=== PATIENT | female | born 1955 ===

== ENCOUNTER 2016-12-23 18:30 | Emergency (ER) | payer SELFPAY ==
[2016-12-23 18:42] VITALS: TEMP 98.8
--- NOTE | 2016-12-23 19:24 | ED PDOC ---
Arrival/HPI - General Chief Complaint: Lower Extremity Problem/Injury Time Seen by Provider: 12/23/16 19:03 Historian: Patient, Family - History of Present Illness Narrative History of Present Illness (Text): 12/23/16 19:20 61yr old female presents today with left knee pain. pt states she has been having on and off knee pain for a while. pt states she was told she had a cyst behind the left knee. pt states that she stood up today, felt a pop in the knee and has been unable to ambulate since. pt c/o 11/19 pain over the anterior aspect of the knee with the inability to flex the knee. no mediations taken for pain. incident occurred prior to arrival. denies numbness, weakness, tingling in the extremity. no other complaints. Time/Duration: Prior to Arrival Symptom Onset: Sudden Symptom Course: Unchanged Past Medical History - Provider Review Nursing Documentation Reviewed: Yes - Travel History Have you recently traveled outside [place] w/in the past 3 mons?: No - Cardiac Hx Hypertension: Yes - Psychiatric Hx Substance Use: No - Surgical History Hx Cholecystectomy: Yes Other/Comment: L knee drained 2 years ago - Anesthesia Hx Anesthesia: Yes Hx Anesthesia Reactions: No Hx Malignant Hyperthermia: No Family/Social History - Physician Review Nursing Documentation Reviewed: Yes Family/Social History: Unknown Family HX Smoking Status: Never Smoked Hx Alcohol Use: No Hx Substance Use: No Allergies/Home Meds Allergies/Adverse Reactions: Allergies No Known Allergies Allergy (Verified 12/23/16 18:59) Home Medications: Home Meds Medication Instructions Recorded Confirmed Candesartan/Hydrochlorothiazid 1 tab PO DAILY 12/23/16 12/23/16 [Candesartan-Hctz 32-12.5 mg Tb] Review of Systems - Review of Systems Constitutional: absent: Fatigue, Fevers Respiratory: absent: SOB, Cough Cardiovascular: absent: Chest Pain, Palpitations Gastrointestinal: absent: Abdominal Pain, Nausea, Vomiting Genitourinary Female: absent: Dysuria, Frequency Musculoskeletal: Arthralgias Skin: absent: Rash, Pruritis Neurological: absent: Headache, Dizziness Psychiatric: absent: Anxiety, Depression Physical Exam Vital Signs Reviewed: Yes Vital Signs Temp Pulse Resp BP Pulse Ox 12/23/16 18:42 98.8 F 108 H 18 139/84 100 Temperature: Afebrile Blood Pressure: Normal Pulse: Tachycardic Respiratory Rate: Normal Appearance: Positive for: Well-Appearing, Non-Toxic, Comfortable Pain Distress: None Mental Status: Positive for: Alert and Oriented X 3 - Systems Exam Head: Present: Atraumatic Neck: Present: Normal Range of Motion Respiratory/Chest: Present: Clear to Auscultation, Good Air Exchange. No: Respiratory Distress, Accessory Muscle Use Cardiovascular: Present: Regular Rate and Rhythm, Normal S1, S2. No: Murmurs Abdomen: No: Tenderness Lower Extremity: Present: NORMAL PULSES, Tenderness (left knee; + ttp over anterior and posterior aspect of knee; leg held in extension; unable to flex. no calf tenderness. no erythema; no edema, no ecchymosis; no warmth. ), Neurovascularly Intact, Capillary Refill < 2 s. No: CALF TENDERNESS, Normal ROM , Swelling, Temperature Abnormalties Neurological: Present: GCS=15, Speech Normal, Normal Sensory Function Skin: Present: Warm, Dry, Normal Color. 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 no tenderness. knee immoblizer and cane given for ambulation all results discussed in depth with patient and her daughter. pt was advised to f/u with orthopedist. advised using immobilizer and cane for ambulation. stressed importance of immediate return if symptoms worsen,persist or if new symptoms develop. case discussed with attending of record. impression; knee pain motrin every 6 hours as needed for pain percocet; 1 tablet every 6 hours as needed for moderate to severe pain; may cause drowsiness Use knee immobilizer and cane for ambulation Rest, Ice, elevation follow up with the orthopedist within the next 2 days Follow up with the primary care physician within the next 2 days Return immediately if symptoms worsen,persist or if new symptom develop. - RAD Interpretation Radiology Orders: 12/23/16 19:10 KNEE WITH PATELLA LEFT 3 VIEW [RAD] Stat DUPLEX LOWER EXTRM VEIN LEFT [US] Stat - Medication Orders Current Medication Orders: Discontinued Medications Ketorolac Tromethamine (Toradol) 60 mg IM STAT STA Stop: 12/23/16 19:11 Last Admin: 12/23/16 19:43 Dose: 60 mg MAR Pain Assessment Document 12/23/16 19:43 OCS (Rec: 12/23/16 19:[address] [facility] [id number]) Pain Reassessment Is this a pain reassessment? Yes Sleep Is patient sleeping during reassessment? No Presence of Pain Presence of Pain Yes Pain Scale Used Pain Scale Used Numeric Location Left, Right or Bilateral Left Pain Location Body Site Knee Description Description Constant Intensity of Pain at present 8 IM Administration Charges Document 12/23/16 19:43 OCS (Rec: 12/23/16 19:[address] [facility] [id number]) Injection Site MAR Injection Site Left Deltoid Charges for Administration # of IM Administrations 1 Oxycodone/Acetaminophen (Percocet 5/325 Mg Tab) 1 tab PO STAT STA Stop: 12/23/16 19:35 Last Admin: 12/23/16 19:42 Dose: 1 tab MAR Pain Assessment Document 12/23/16 19:42 OCS (Rec: 12/23/16 19:[address] [facility] [id number]) Pain Reassessment Is this a pain reassessment? Yes Sleep Is patient sleeping during reassessment? No Presence of Pain Presence of Pain Yes Pain Scale Used Pain Scale Used Numeric Location Left, Right or Bilateral Left Pain Location Body Site Knee Description Description Constant Intensity of Pain at present 8 Alleviating Factors/Management Medication Techniques Disposition/Present on Arrival - Present on Arrival Any Indicators Present on Arrival: No History of DVT/PE: No History of Uncontrolled Diabetes: No Urinary Catheter: No History of Decub. Ulcer: No History Surgical Site Infection Following: None - Disposition Have Diagnosis and Disposition been Completed?: Yes Diagnosis: Knee pain Disposition: HOME/ ROUTINE Disposition Time: 20:34 Patient Plan: Discharge Condition: GOOD Discharge Instructions (ExitCare): Knee Pain (ED) Print Language: BAHRAINI Additional Instructions: motrin every 6 hours as needed for pain percocet; 1 tablet every 6 hours as needed for moderate to severe pain; may cause drowsiness Use knee immobilizer and cane for ambulation Rest, Ice, elevation follow up with the orthopedist within the next 2 days Follow up with the primary care physician within the next 2 days Return immediately if symptoms worsen,persist or if new symptom develop. Prescriptions: Ibuprofen [Motrin] 600 mg PO Q6H PRN #20 tab PRN Reason: pain/fever reduction oxyCODONE/Acetaminophen [Percocet 5/325 mg Tab] 1 tab PO Q6H PRN #6 tab PRN Reason: moderate to severe pain Referrals: PCP,NO [Primary Care Provider] - Follow up with primary Wilder Chavez MD [Staff Provider] - Follow up with primary Jethro Bruno MD [Staff Provider] - Follow up with primary [facility] [place]Outside] - Follow up with primary [facility] [place] [Outside] - Follow up with primary Forms: [employer] (Peruvian)
[2016-12-23] MEDS ORDERED: Oxycodone/Acetaminophen 5/325 mg Tab PO STA (19:34)
[2016-12-23 20:43] VITALS: BP 147/74; PULSE 82; RESP 16; O2SAT 98
--- NOTE | 2016-12-24 08:50 | US ---
PROCEDURE: Left lower extremity venous US HISTORY: Leg pain and swelling. Evaluate for DVT. PHYSICIAN(S): Jose Leon MD. TECHNIQUE: Duplex sonography and color-flow Doppler with graded compression were used to evaluate the deep venous system of the left lower extremity. FINDINGS: The visualized deep venous system of the left lower extremity is sonographically normal and compressible. Normal wave forms and augmentation are seen. There is no sonographic evidence for deep venous thrombosis in the visualized segments of the left lower extremity. IMPRESSION: 1. No sonographic evidence for deep venous thrombosis in the visualized segments of the left lower extremity.
--- NOTE | 2016-12-24 09:18 | RAD ---
PROCEDURE: Left Knee Radiographs. HISTORY: Pain. COMPARISON: None. FINDINGS: BONES: Normal. No fracture. JOINTS: Mild narrowing of the medial joint compartment. Lateral and patellofemoral compartments are preserved. No articular erosions. JOINT EFFUSION: None. OTHER FINDINGS: None. IMPRESSION: Mild medial osteoarthritis. Otherwise unremarkable.
== END 2016-12-23 20:35 | disposition home or self-care (01) ==
LOC: ED 18:30
DX: M25.562 Pain in left knee (principal); I10 Essential (primary) hypertension
CPT/HCPCS: 73562; 93971; 96372; 99283; J1885